=== PATIENT | female | born 1995 ===

== ENCOUNTER 2018-07-11 15:26 | Emergency (ER) | payer MEDICAID, MEDICARE ==
[2018-07-11 15:42] VITALS: BMI 36.0
[2018-07-11 15:45] VITALS: TEMP 98.1
[2018-07-11 16:10] LABS: SQUAMOUS EPITHIAL 18 /hpf (0-5); URINE BACTERIA OCC (<OCC); URINE BILIRUBIN NEGATIVE (NEGATIVE); URINE BLOOD NEGATIVE (NEGATIVE); URINE CLARITY Hazy (Clear); URINE COLOR Yellow (YELLOW); URINE GLUCOSE (UA) NORMAL (Normal); URINE LEUKOCYTE ESTERASE 1+ Leu/uL (Negative); URINE PROTEIN NEGATIVE (NEGATIVE); URINE UROBILINOGEN NORMAL mg/dL (0.2-1.0)
--- NOTE | 2018-07-11 16:57 | C.PDOC ---
History Of Present Illness 23 year old female presents to the ED complaining of dysuria and urinary frequency for 6 days. Denies any abdominal pain, fever, rash, back pain, vaginal discharge or hematuria. States she took left over Amoxicillin (? PCN allergy) for the last couple of days but symptoms persisted. Pt notes she is sexually active and she had a D&C 1.5 months ago. Notes no pelvic pain until dysuria started this week. Time Seen by Provider: 07/11/18 15:36 Chief Complaint (Nursing): Female Genitourinary History Per: Patient History/Exam Limitations: no limitations Onset/Duration Of Symptoms: Days (6) Current Symptoms Are (Timing): Still Present Quality Of Discomfort: "Pain" Associated Symptoms: Urinary Symptoms. denies: Fever, Chills, Back Pain Past Medical History Reviewed: Historical Data, Nursing Documentation, Vital Signs Vital Signs: Last Vital Signs Temp 98.1 F 07/11/18 15:42 Pulse 111 H 07/11/18 15:42 Resp 20 07/11/18 15:42 BP 109/75 07/11/18 15:42 Pulse Ox 100 07/11/18 15:42 - Medical History PMH: Anxiety, Sexually Transmitted Disease Denies: Chronic Kidney Disease Other Surgeries: Hx of surgeries Family History: States: No Known Family Hx - Social History Hx Alcohol Use: Yes ("on weekends") Hx Substance Use: Yes (marijuana) - Immunization History Hx Tetanus Toxoid Vaccination: No Hx Influenza Vaccination: No Hx Pneumococcal Vaccination: No Review Of Systems Review Of Systems: ROS cannot be obtained secondary to pt's inabilty to answer questions. Constitutional: Negative for: Fever, Chills Gastrointestinal: Negative for: Nausea, Vomiting, Abdominal Pain, Diarrhea Genitourinary: Positive for: Dysuria, Frequency. Negative for: Hematuria, Vaginal Discharge, Vaginal Bleeding Musculoskeletal: Negative for: Back Pain Skin: Negative for: Rash Physical Exam - Physical Exam Appears: Non-toxic, No Acute Distress Skin: Warm, Dry, No Rash Head: Normacephalic Eye(s): bilateral: Normal Inspection, EOMI Nose: Normal Oral Mucosa: Moist Neck: Normal ROM, Supple Chest: Symmetrical Cardiovascular: Rhythm Regular Respiratory: No Accessory Muscle Use, Other (Speaking full sentences, CTA B/L) Gastrointestinal/Abdominal: Soft, No Tenderness Pelvic: Normal External Exam, Vaginal Discharge (clear white mucous, no odor), No Cervical Motion Tenderness, No Cervix Open (closed os, cervical irregularity) Neurological/Psych: Oriented x3, Normal Speech Gait: Steady ED Course And Treatment - Laboratory Results Lab Results: Urine Color Yellow (YELLOW) 07/11/18 15:55 Urine Clarity Hazy (Clear) 07/11/18 15:55 Urine pH 6.0 (5.0-8.0) 07/11/18 15:55 Ur Specific Grant 1.023 (1.003-1.030) 07/11/18 15:55 Urine Protein Negative mg/dL (NEGATIVE) 07/11/18 15:55 Urine Glucose (UA) Normal mg/dL (Normal) 07/11/18 15:55 Urine Ketones Trace mg/dL (NEGATIVE) 07/11/18 15:55 Urine Blood Negative (NEGATIVE) 07/11/18 15:55 Urine Nitrate Negative (NEGATIVE) 07/11/18 15:55 Urine Bilirubin Negative (NEGATIVE) 07/11/18 15:55 Urine Urobilinogen Normal mg/dL (0.2-1.0) 07/11/18 15:55 Ur Leukocyte Esterase 1+ Laila/uL (Negative) H 07/11/18 15:55 Urine WBC (Auto) 11 /hpf (0-5) H 07/11/18 15:55 Urine RBC (Auto) 11 /hpf (0-3) H 07/11/18 15:55 Ur Squamous Epith Cells 18 /hpf (0-5) H 07/11/18 15:55 Urine Bacteria Occ (<OCC) H 07/11/18 15:55 Urine HCG, Qual Negative (NEGATIVE) 07/11/18 15:55 Urine HCG, Qual Negative (NEGATIVE) 07/11/18 15:55 O2 Sat by Pulse Oximetry: 100 (RA) Pulse Ox Interpretation: Normal Progress Note: Chlamydia/GC RNA test ordered. Urine cultures collected. Patient treated with Zithromycin 2 g (PCN allergy) for STD prophylaxis . She will be treated with UTI for symtpoms. Pt has no cervical motion tenderness, abdominal pain, back pain, fever, or foul odor, no evidence of PID. 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 Discussed signs and symptoms of concern to return to ER. Case discussed with Dr Mary, agreed upon plan and discharge. Disposition - Disposition Disposition: HOME/ ROUTINE Disposition Time: 18:12 Condition: STABLE Additional Instructions: Follow up with [facility]PER[facility] in 1-2 days. Return to ER if symptoms persist or worsen. Prescriptions: Sulfamethoxazole/Trimethoprim [Bactrim DS 800 mg-160 mg] 1 tab PO BID #14 tab Instructions: Urinary Tract Infection, Adult (DC) Forms: [email or web address] (Belarusian) - Clinical Impression Clinical Impression: UTI (urinary tract infection) - PA / [employer] / Resident Statement MD/DO has reviewed & agrees with the documentation as recorded. - Scribe Statement The provider has reviewed the documentation as recorded by the Scribe Ann-Marie Tidwell All medical record entries made by the Janice were at my direction and personally dictated by me. I have reviewed the chart and agree that the record accurately reflects my personal performance of the history, physical exam, medical decision making, and the department course for this patient. I have also personally directed, reviewed, and agree with the discharge instructions and disposition.
[2018-07-11 17:38] VITALS: BP 117/81; PULSE 86; RESP 16
[2018-07-11 18:07] VITALS: O2SAT 100
== END 2018-07-11 17:37 | disposition home or self-care (01) ==
LOC: C.ER 15:26
DX: N39.0 Urinary tract infection, site not specified (principal)

== ENCOUNTER 2018-08-17 15:27 | Emergency (ER) | payer MEDICAID ==
[2018-08-17 15:27] VITALS: BMI 36.0
--- NOTE | 2018-08-17 15:38 | C.PDOC ---
History Of Present Illness 23 yr old female w/ no ppmhx p/w abdominal pain. Pt notes epigatric abdominal pain after drinking coffee at a gas station. She notes after drinking the coffee, epigastric abdominal pain that feels like a cramping. No nausea or vomit ing or chest pain or shortness of breath. No constipation but pt notes x1 episode of diarrhea after the coffee. No fall or trauma. LMP, beginning of this month, normal. No rash or abnl vaginal d/c. Did not take any medications for her epigastric pain. No other complaints. PMD: Dr. Mac Puckett Time Seen by Provider: 08/17/18 15:38 Chief Complaint (Nursing): Abdominal Pain Past Medical History Vital Signs: Last Vital Signs Temp 98.3 F 08/17/18 15:34 Pulse 107 H 08/17/18 15:34 Resp 20 08/17/18 15:34 BP 107/74 08/17/18 15:34 Pulse Ox 98 08/17/18 15:34 Primary Care Provider: Mac Puckett - Medical History PMH: Anxiety, Sexually Transmitted Disease Denies: Chronic Kidney Disease Family History: States: Unknown Family Hx - Social History Hx Alcohol Use: Yes ("on weekends") Hx Substance Use: Yes (marijuana) - Immunization History Hx Tetanus Toxoid Vaccination: No Hx Influenza Vaccination: No Hx Pneumococcal Vaccination: No Review Of Systems Constitutional: Negative for: Fever, Chills, Sweats, Weakness, Malaise Eyes: Negative for: Pain, Vision Change, Conjunctivae Inflammation ENT: Negative for: Ear Pain, Ear Discharge, Nose Pain, Nose Discharge, Nose Congestion, Mouth Pain, Mouth Swelling Cardiovascular: Negative for: Chest Pain, Palpitations, Orthopnea, Paroxysmal Noc. Dyspnea, Edema Respiratory: Negative for: Cough, Shortness of Breath, Hemoptysis, SOB with Excertion, Pleuritic Pain, Sputum Gastrointestinal: Positive for: Abdominal Pain, Diarrhea. Negative for: Nausea, Vomiting, Constipation, Melena, Hematochezia, Hematemesis Genitourinary: Negative for: Dysuria, Frequency, Incontinence, Hematuria, Vaginal Discharge, Vaginal Bleeding Musculoskeletal: Negative for: Neck Pain, Shoulder Pain, Arm Pain, Back Pain, Hand Pain, Leg Pain Skin: Negative for: Rash, Lesions, Jaundice Neurological: Negative for: Weakness, Numbness, Confusion, Seizures, Headache Psych: Negative for: Anxiety, Depression, Psychosis, Suicidal ideation Physical Exam - Physical Exam Appears: Well, Non-toxic, No Acute Distress Skin: Normal Color, Warm, Dry Head: Atraumatic, Normacephalic Eye(s): bilateral: Normal Inspection, PERRL, EOMI Ear(s): Bilateral: Normal Nose: Normal, No Flaring, No Discharge Oral Mucosa: Moist Tongue: Normal Appearing Lips: Normal Appearing Throat: Normal, No Erythema, No Exudate, No Drooling, No Mass Neck: Normal, Normal ROM, Supple, Other (no meningeal signs) Lymphatic: No Adenopathy Cardiovascular: Rhythm Regular, No Murmur, No JVD Respiratory: Normal Breath Sounds, No Stridor, No Wheezing Gastrointestinal/Abdominal: Normal Exam, Soft, Tenderness (epigastric), No Mass, No Distention, No Guarding, No Rebound, No Hernia, No Ascites, No Other Back: Normal Inspection, No CVA Tenderness, No Vertebral Tenderness, No Decreased ROM Extremity: Normal ROM, No Tenderness, No Pedal Edema Extremity: Bilateral: Atraumatic Neurological/Psych: Oriented x3, Normal Speech, Normal Cognition Gait: Steady Extremity: Right: No Drift, Left: No Drift ED Course And Treatment - Laboratory Results Result Diagrams: 08/17/18 17:17 08/17/18 17:17 O2 Sat by Pulse Oximetry: 98 Medical Decision Making Medical Decision Makin yr old female p/w epigastric abd pain and diarrhea x1 (no recent abx) after drinking gas station coffee. No chest pain or back pain. No headache / fall or trauma. Likely gastritis type pain given recent ingestion of coffee followed by symptoms. No RLQ pain or LLQ pain or suprapubic pain. No rash or vaginal d/c. No chest pain or sob. 1740 leukocytosis to 14.6k, likely reactive as pt has had vomiting and diarrhea no abd ttp on repeat exam. No cough or fever. No urinary complaints or d/c. No neck stiffness of meningeal signs No or chills or night sweats. No rash. tolerated clears, pt resting comfortable clear for d/c home with return indications and f/u. Pt agreeable to plan. Disposition - Disposition Referrals: Jose Oh MD [Staff Provider] - Mac Puckett MD [Staff Provider] - [facility] [Outside] Head Resident [facility] [Outside] [facility] [Outside] Disposition Time: 17:46 Condition: STABLE Additional Instructions: RICHARD COTE, thank you for letting us take care of you today. Your provider was Jm Alva and you were treated for STOMACH PAIN. The emergency medical care you received today was directed at your acute symptoms. If you were prescribed any medication, please fill it and take as directed. It may take several days for your symptoms to resolve. Return to the Emergency Department if your symptoms worsen, do not improve, or if you have any other problems. Please contact your doctor or call one of the physicians/clinics you have been referred to that are listed on the Patient Visit Information form that is included in your discharge packet. Bring any paperwork you were given at discharge with you along with any medications you are taking to your follow up visit. Our treatment cannot replace ongoing medical care by a primary care provider outside of the emergency department. Thank you for allowing the [facility] team to be part of your care today. If you had an X-Ray or CT scan: A Radiologist will review the ED reading if any change in treatment is needed we will contact you. If you had a blood, urine, or wound culture: It will take several days for the results, if any change in treatment is needed we will contact you. If you had an STI test: It will take 48 hours for the results. Please call after 1 week if you have not heard back. Prescriptions: Famotidine [Pepcid] 20 mg PO Q12H PRN 3 Days #6 tab PRN Reason: Dyspepsia Instructions: Gastroenteritis (DC) Forms: [employer] (S[place]an) - Clinical Impression Clinical Impression: Gastroenteritis
[2018-08-17 17:23] LABS: BASO # 0.1 K/uL (0.0-0.2); BASO % 0.6 % (0.0-2.0); EOS # 0.1 K/uL (0.0-0.7); EOS % 0.7 % (0.0-4.0); HEMOGLOBIN 12.8 g/dL (11.0-16.0); LYMPH # 2.7 K/uL (1.0-4.3); LYMPH % 18.6 % (20.0-40.0); MEAN CORPUSCULAR HEMOGLOBIN 27.8 pg (27.0-31.0); MEAN CORPUSCULAR HGB CONC 32.9 g/dL (33.0-37.0); MONO # 0.6 K/uL (0.0-0.8); MONO % 4.4 % (0.0-10.0); NEUT # 11.1 K/uL (1.8-7.0); NEUT % 75.7 % (50.0-75.0); NRBC % 0.1 % (0.0-2.0); RBC 4.61 Mil/uL (3.80-5.20); RED CELL DISTRIBUTION WIDTH 15.4 % (11.5-14.5); WHITE BLOOD COUNT 14.6 K/uL (4.8-10.8)
[2018-08-17 17:36] LABS: MEAN CELL VOLUME 84.6 fL (81.0-99.0)
[2018-08-17 17:39] LABS: ALB/GLOB RATIO 1.4 (1.0-2.1); ALBUMIN 4.1 g/dL (3.5-5.0); ALT/SGPT 40 U/L (9-52); AST/SGOT 24 U/L (14-36); BLOOD UREA NITROGEN 15 mg/dL (7-17); GFR NON-AFRICAN AMERICAN > 60; LIPASE 44 U/L (23-300)
[2018-08-17 18:20] VITALS: BP 107/71; PULSE 95; RESP 18; TEMP 98.1; O2SAT 96
== END 2018-08-17 18:15 | disposition home or self-care (01) ==
LOC: C.ER 15:27
DX: K52.9 Noninfective gastroenteritis and colitis, unspecified (principal)